=== PATIENT | male | born 1955 | race African-American/Black ===

== ENCOUNTER 2016-12-28 19:15 | Emergency (ER) | payer OTHER ==
[2016-12-28 19:28] VITALS: BP 142/64; PULSE 81; TEMP 99.1; BMI 32.5
--- NOTE | 2016-12-28 20:32 | PDOC ---
History of Present Illness - General History Source: Patient Exam Limitations: No Limitations - History of Present Illness Initial Comments: 12/28/16 20:55 The patient is a 61 year old male with past medical history of hypertension and Hepatitis C who presents to the ED with complaints of sinus congestion that began last evening. The patient states he has a lot of pressure built up behind his ears that kept him from sleeping last night and began to develop a runny nose this morning. His symptoms are relieved by taking a hot shower and states that he used Flonase without receiving any relief. The patient denies any fever , chills, cough, shortness of breath, nausea or vomiting. <Hope Gooden - Last Filed: 12/28/16 20:55> <Alka Hernandez - Last Filed: 12/29/16 02:47> - General Chief Complaint: Ear Problem Stated Complaint: STUFFY EARS Time Seen by Provider: 12/28/16 20:03 Past History <Hope Gooden - Last Filed: 12/28/16 20:55> - Past Medical History HTN: Yes - Psycho/Social/Smoking Cessation Hx Anxiety: No Suicidal Ideation: No Smoking History: Never smoked Have you smoked in the past 12 months: No Hx Alcohol Use: No Drug/Substance Use Hx: No Substance Use Type: None <Alka Hernandez - Last Filed: 12/29/16 02:47> - Past Medical History Allergies/Adverse Reactions: Allergies Allergy/AdvReac Type Severity Reaction Status Date / Time No Known Allergies Allergy Verified 01/16/15 01:06 Home Medications: Ambulatory Orders Ramipril [Altace] 5 mg PO DAILY 01/16/15 Diphenhydramine [Benadryl -] 50 mg PO HS #14 capsule 12/28/16 Pseudoephedrine HCl [Sudafed] 30 mg PO QID #20 tablet MDD 4 12/28/16 Review of Systems - Review of Systems Able to Perform ROS?: Yes Comments:: 12/28/16 20:55 CONSTITUTIONAL: Absent: fever, chills, diaphoresis, generalized weakness, malaise, loss of appetite HEENT: Present: rhinorrhea, sinus congestion Absent: throat pain, throat swelling, difficulty swallowing, mouth swelling, ear pain, eye pain, visual Changes CARDIOVASCULAR: Absent: chest pain, syncope, palpitations, irregular heart rate, lightheadedness , peripheral edema RESPIRATORY: Absent: cough, shortness of breath, dyspnea with exertion, orthopnea, wheezing, stridor, hemoptysis GASTROINTESTINAL: Absent: abdominal pain, abdominal distension, nausea, vomiting, diarrhea, constipation, melena, hematochezia GENITOURINARY: Absent: dysuria, frequency, urgency, hesitancy, hematuria, flank pain, genital pain MUSCULOSKELETAL: Absent: myalgia, arthralgia, joint swelling SKIN: Absent: rash, itching, pallor HEMATOLOGIC/IMMUNOLOGIC: Absent: easy bleeding, easy bruising, lymphadenopathy, frequent infections ENDOCRINE: Absent: unexplained weight gain, unexplained weight loss, heat intolerance, cold intolerance NEUROLOGIC: Absent: headache, focal weakness or paresthesias, dizziness, unsteady gait, seizure, mental status changes, bladder or bowel incontinence PSYCHIATRIC: Absent: anxiety, depression, suicidal or homicidal ideation, hallucinations. All Other Systems: Reviewed and Negative <Hope Gooden - Last Filed: 12/28/16 20:55> *Physical Exam - Vital Signs Last Vital Signs Temp Pulse Resp BP Pulse Ox 99.1 F 81 16 142/64 98 12/28/16 19:25 12/28/16 19:25 12/28/16 19:25 12/28/16 19:25 12/28/16 19:25 <Hope Gooden - Last Filed: 12/28/16 20:55> - Vital Signs Last Vital Signs Temp Pulse Resp BP Pulse Ox 99.1 F 81 16 142/64 98 12/28/16 19:25 12/28/16 19:25 12/28/16 19:25 12/28/16 19:25 12/28/16 19:25 <Alka Hernandez - Last Filed: 12/29/16 02:47> ED Treatment Course - Medications Given in the ED: ED Medications Discontinued Medications Generic Name Dose Route Start Last Admin Trade Name Keyonq PRN Reason Stop Dose Admin Pseudoephedrine HCl 60 mg 12/28/16 20:45 12/28/16 20:44 Sudafed - PO 12/28/16 20:46 60 mg ONCE ONE Administration <Hope Gooden - Last Filed: 12/28/16 20:55> Medical Decision Making - Medical Decision Making 12/29/16 02:45 Pt comes with cold and congestion, particularly bothering him is his stuffy ears. He has no sign off OM or bacterial infection. He has some increased clear fluid behind the TMs that will be treated with sudafed and benadyl. Rest of patient's exam is normal, except for stuffy nose and cough/postnasal drip. Pt will be referred back to his PMD. <Alka Hernandez - Last Filed: 12/29/16 02:47> *DC/Admit/Observation/Transfer - Attestations Scribe Attestion: 12/28/16 20:56 Documentation prepared by Hope Gooden, acting as medical records technician for Alka Hernandez MD. <Hope Gooden - Last Filed: 12/28/16 20:55> - Discharge Dispostion Admit: No <Alka Hernandez - Last Filed: 12/29/16 02:47> Diagnosis at time of Disposition: Viral URI, Congestion of both ears - Discharge Dispostion Disposition: HOME Condition at time of disposition: Stable - Prescriptions Prescriptions: Diphenhydramine [Benadryl -] 50 mg PO HS #14 capsule Pseudoephedrine HCl [Sudafed] 30 mg PO QID #20 tablet MDD 4 - Referrals Referrals: STAFF,NOT ON [Primary Care Provider] - - Patient Instructions Printed Discharge Instructions: DI for Nasal Congestion, Common Cold
[2016-12-28] MEDS ORDERED: PSEUDOEPHEDRINE HCL 30 MG TABLET ONE ×2 (20:41→20:43)
[2016-12-28] MEDS ORDERED: PSEUDOEPHEDRINE HCL 60 MG TABLET PO ONE (20:45)
== END 2016-12-28 20:53 | disposition home or self-care (01) ==
LOC: FER 19:15
DX: J06.9 Acute upper respiratory infection, unspecified (principal); B97.89 Other viral agents as the cause of diseases classified elsewhere; H93.90 Unspecified disorder of ear, unspecified ear; I10 Essential (primary) hypertension; B18.2 Chronic viral hepatitis C
CPT/HCPCS: 99281-25